=== PATIENT | female | born 1990 | race African-American/Black ===

== ENCOUNTER → 2018-01-18 12:19 | Outpatient (CLI) | payer OTHER ==
[~2018-01-18 12:19] MED LIST: LEVSIN/SL0.125 MG SL; OBSTETRIX EC C1 EACH; OBSTETRIX ONE1 EACH; PEPCID40 MG PO
== END | disposition home or self-care (01) ==
LOC: LAB 12:19
DX: Z34.81 Encounter for supervision of other normal pregnancy, first trimester (principal); O20.0 Threatened abortion

== ENCOUNTER 2018-01-18 12:44 | Outpatient (CLI) | payer OTHER | END 2018-01-18 12:59 | disposition home or self-care (01) | LOC: SONOGRAMA 12:44 | DX: O20.0 Threatened abortion (principal); Z34.81 Encounter for supervision of other normal pregnancy, first trimester ==

== ENCOUNTER 2018-01-22 23:26 | Emergency (ER) | payer OTHER ==
[~2018-01-22] VITALS: Ht 160 cm; Wt 109.3 kg
== END 2018-01-23 05:22 | disposition home or self-care (01) ==
LOC: ER 23:26
DX: O20.0 Threatened abortion (principal); Z34.01 Encounter for supervision of normal first pregnancy, first trimester

== ENCOUNTER 2018-02-10 10:26 | Outpatient (CLI) | payer OTHER | END 2018-02-10 10:38 | disposition home or self-care (01) | LOC: SONOGRAMA 10:26 → MAMO-SONO 11:15 | DX: O20.0 Threatened abortion (principal) ==